=== PATIENT | female | born 1980 | race Caucasian/White ===

== ENCOUNTER 2016-07-08 13:41 | Outpatient (CLI) | payer OTHER ==
[2016-07-08 18:46] VITALS: BMI 33.5
[2016-07-08] MEDS ORDERED: PROMETHAZINE HCL 25 MG/ML VIAL ONE (19:01)
[2016-07-08] MEDS ORDERED: MORPHINE SULFATE 10 MG/ML SYRINGE ONE (19:02)
[2016-07-08] MEDS ORDERED: MORPHINE SULFATE 10 MG/ML SYRINGE IM ONE (19:05)
[2016-07-08] MEDS: PROMETHAZINE HCL 25 MG/ML VIAL IM ONE ×2 (19:16→19:17)
== END 2016-07-08 19:30 | disposition home or self-care (01) ==
LOC: FBCOUT 13:41 → FBC 13:47 → FBCOUT 19:30
PROVIDERS: ATTEND Advanced Practice Midwife
DX: O47.9 False labor, unspecified (principal); O09.529 Supervision of elderly multigravida, unspecified trimester; Z3A.00 Weeks of gestation of pregnancy not specified
CPT/HCPCS: 96372; 59025; 81002; J2270; J2550; G0463

== ENCOUNTER 2016-07-09 06:05 | Inpatient (IN) | payer OTHER ==
[2016-07-09] MEDS ORDERED: IV START KIT ONE (06:18)
[2016-07-09] MEDS ORDERED: LACTATED RINGERS 1,000 ML ONE (06:18)
[2016-07-09] MEDS ORDERED: PENICILLIN G POTASSIUM 5 MMU in NS 0.9% (MINI-BAG PLUS) 100 ML IV ONE (06:20)
[2016-07-09] MEDS ORDERED: LACTATED RINGERS 1,000 ML IV SCH (06:30)
[2016-07-09] MEDS ORDERED: PENICILLIN G POTASSIUM 5 MMU VIAL ONE (06:51)
[2016-07-09] MEDS ORDERED: NS 0.9% (MINI-BAG PLUS) 100 ML IV ONE (06:51)
[2016-07-09 07:46] VITALS: BMI 33.5
[2016-07-09] MEDS ORDERED: MINERAL OIL 25 ML BOT ONE (08:53)
[2016-07-09] MEDS ORDERED: LIDOCAINE 1% (PRES FREE) 30 ML VIAL ONE (08:53)
[2016-07-09] MEDS ORDERED: OXYTOCIN 10 UNITS/ML VIAL ONE (08:53)
[2016-07-09] MEDS ORDERED: LIDOCAINE Viscous 2% 15 ML UDCUP ONE (08:53)
[2016-07-09] MEDS ORDERED: PUMP TUBING ONE (08:54)
[2016-07-09] MEDS ORDERED: OXYTOCIN IN LR 0 ML IV ONE (08:54)
[2016-07-09 09:34] LABS: HEMATOCRIT 38.2 % (37.0-47.0); HEMOGLOBIN 12.5 gm/l (12.0-16.0); MEAN CELL VOLUME 94.3 fl (81.0-99.0); MEAN CORPUSCULAR HEMOGLOBIN 30.9 pg (27.0-31.0); MEAN CORPUSCULAR HGB CONC 32.7 g/dl (33.0-37.0); RED CELL DISTRIBUTION WIDTH 12.9 % (11.5-14.5)
[2016-07-09] MEDS ORDERED: PENICILLIN G 3 MIL UNIT PREMIX 50 ML IV ONE (10:26)
[2016-07-09] MEDS: PENICILLIN G 3 MIL UNIT PREMIX 3 MMU in Premix (D5W) 50 ml 1 EACH IV SCH (10:58)
[2016-07-09] MEDS ORDERED: FENTANYL 100 MCG/2 ML VIAL IV ONE ×2 (11:43→17:01)
--- NOTE | 2016-07-09 11:43 | PDOC36 ---
Provider Note Subject: Labor Progress Note Note: S; On hands and knees by bedside. Breathing through contractions. Some are stronger than others. Has been trying to rest, unsuccessfully due to the contractions. O: IA: 145 baseline, increases heard, no decreases heard Contractions: q 3-4 minutes, moderate to palpation SVE: 6/100/-3/LOT VS: BP 107/59, HR 90, RR 18, T 37.3 C A: Active labor Slow progress in 5 hours GBS pos; received adequate prophylaxis Remains candidate for IA P: Discussed risks/benefits of AROM augmentation v. expectant management for another 2 hours.
--- NOTE | 2016-07-09 11:43 | PCMAN ---
OB Admission Note - History : 2 Term: 1 : 0 Abortions (S&E): 0 Livin EDC:: 07/01/16 Gestational Age (weeks): 41 Days (#/7): 1 Admit Cervical Dilation:: 5 Admit Cervical Effacement (%):: 85 Admit Station:: -3 Admit Presentaton:: vertex Membrane Status: Intact Labor Onset (Date): 07/09/16 Labor Onset (Time): 06:00 Contractions: Yes Contraction Frequency:: q 3-4 mins Heart Rate:: 150 (moderate variability/accels present/decels absent) Status:: FHR Cat 1 EFW:: 7-7.5# Summary of Course:: Onset of care at 8w5d x 16 visits. complicated by mild hyperemesis gravidum and rheumatoid arthritis. Took humira throughout until . [place] U/S at 34w showed stable uterine fibroid at 2.5cm x 1.5 cm x 2.6 cm. YNES based on 9w5d U/S. - Labs Blood Type: A (+) positive Hct/Hgb:: 11.7 Rubella Status: Immune GBS Status: Positive Abnormal Labs: None - Review of Systems Neg ROS - Physical Exam General: Afebrile, No Acute Distress Psych/Mental Status: Mood/Affect Appropriate, Judgment/Insight Intact Neurological: Grossly Intact, Alert, Oriented x 4 Lungs: Clear to Auscultation Bilaterally Cardiovascular: Regular Rate and Rhythm Genitourinary: Normal Female Genitalia, No Edema Extremities: Full ROM, No Edema - Problems (1) Active labor at term Status: Acute Code: [id number] Assessment/Plan: 36 year old at 41w1d Active labor GBS pos FHR Cat 1 Rheumatoid arthritis Uterine fibroid Declines AMTSL Plan: Admit to [facility]. Start GBS prophylaxis. Expectant management of labor. Reassess in 2 hours or PRN.
[2016-07-09] MEDS ORDERED: FENTANYL/ROPIVACAINE EPIDURAL 0 ML EP ONE (13:36)
[2016-07-09] MEDS ORDERED: EPIDURAL PUMP SET ONE (13:36)
[2016-07-09] MEDS ORDERED: LIDOCAINE 1% 2 ML VIAL PF ONE (14:18)
[2016-07-09] MEDS ORDERED: LANOLIN 50 APPLIC/7G TUBE TP PRN (14:28)
[2016-07-09] MEDS ORDERED: CALCIUM CARBONATE 500 MG TAB.CHEW PO PRN (14:28)
[2016-07-09] MEDS ORDERED: BENZOCAINE/MENTHOL 60 APPLIC/BOT TP PRN (14:28)
[2016-07-09] MEDS ORDERED: DOCUSATE SODIUM 100 MG CAPSULE PO PRN (14:28)
[2016-07-09] MEDS ORDERED: HYDROCODONE/ACETAMINOPHEN 5/325MG TABLET PO PRN (14:28)
[2016-07-09] MEDS: IBUPROFEN 800 MG TABLET PO PRN ×2 (14:54→21:06)
--- NOTE | 2016-07-09 21:14 | PCMDEL ---
Delivery Note - Labor 1st stage (hr/min):: 7 hours 2nd stage (hr/min):: 18 mins 3rd stage (hr/min):: 10 mins Total (hr/min):: 7 hours 28 mins Pushed (hr/min):: 18 mins - Delivery Delivery (Date): 07/09/16 Delivery (Time): 13:58 Infant Gender: Female Weight: 3.742 kg Length: 1 ft 9 in Presentation: Cephalic Position: OA Umbilical Cord: 3 Vessel Delayed Cord Clamping:: > 3 min 1 Minute Total: 9 5 Minute Total: 9 Placenta:: Intact/[place] EBL:: 300 Perineum:: 1st degree split Suture:: 3.[address] Anesthesia/Meds:: fentanyl IV Length ROM:: 2 hours Comments:: Admitted to [facility] in active labor. Labored in tub and on hands and knees. FHR Cat 1 during first stage. Slow progress from 5 to 6 cm over 5 hours. Agreed to AROM augmentation as contractions only palpated moderate. perceived to be LOT and anterior asynclitic at time of AROM. AROM of clear fluid. Increase in intensity of contractions and patient received 100 mcg and 50 mcg of IV fentanyl. Requested epidural after two hours post AROM. SVE at that time 7/100/- 2. Anesthesia alerted but then patient started pushing spontaneously shortly afterwards and was found to be complete. Pushed in Semi-Fowlers per patient choice for of vigorous female . Direct OA without restitution. Mother declined holding infant directly after due to reaction to sight of blood. Infant dried and wrapped in blankets at level of perineum until cord stopped pulsing. Given to father after cord cut/ clamped as mother did not want immediate skin to skin. Spontaneous delivery of intact placenta in [place] presentation with gentle cord traction and maternal pushing efforts. Fundus firm with good hemostasis after delivery. Patient had declined AMTSL unless indicated. Perineum noted and shallow first degree laceration noted; repaired with one stitch. Mother and stable in immediate period.
[2016-07-10] MEDS: IBUPROFEN 800 MG TABLET PO PRN ×4 (03:03→23:48)
[2016-07-10 06:33] LABS: HEMATOCRIT 28.8 % (37.0-47.0); HEMOGLOBIN 9.5 gm/l (12.0-16.0)
[2016-07-10] MEDS: PENICILLIN G 3 MIL UNIT PREMIX 3 MMU in Premix (D5W) 50 ml 1 EACH IV SCH (07:06)
--- NOTE | 2016-07-10 13:46 | PDOC39B ---
Hospital Course: ADMIT DATE: 07/09/16 DISCHARGE DATE: 07/10/16 ADMISSION DIAGNOSES: Active labor at term PROCEDURES: HISTORY OF PRESENT ILLNESS: 36 year old G2 T1 L1 at 41 weeks 1 days presenting with active labor at term. Achieved . HOSPITAL COURSE: By day of discharge the patient is ambulating, eating, voiding , and passing flatus without difficulty. Pain is controlled and lochia is appropriate. She is with much difficulty-she has flat nipples and baby has poor latch. Nipples are bruised and sore. Per RN, baby does non-nutritive sucking. Also, patient and RN have been unable to hand-express any colostrum. Patient plans condoms and natural family planning for contraception. She reports being depressed after her 1st baby, but attributes this more due to the transition of moving to [facility] at 6wks and missing her family. She has family who live nearby who are supportive. - Physical Exam Vital Signs: Temp Pulse Resp BP Pulse Ox 98.0 F 59 16 109/56 07/10/16 08:16 07/10/16 08:16 07/10/16 08:16 07/10/16 08:16 General: Afebrile Psych/Mental Status: Mood/Affect Appropriate, Judgment/Insight Intact, Bonding Well Lungs: Clear to Auscultation Bilaterally Cardiovascular: Regular Rate and Rhythm Breast: Soft, Skin intact, Tenderness, Other (Bruising bilaterally) Fundus: Firm, Midline, Below Umbilicus Genitourinary: Normal Female Genitalia (Minimal swelling) Lochia: Light Extremities: Full ROM Skin: Normal Color - Discharge Diagnosis (1) Anemia Qualifiers: Anemia type: iron deficiency Iron deficiency anemia type: unspecified iron deficiency Qualifier Code: (D50.9) Iron deficiency anemia, unspecified Status: Acute Assessment/Plan: A: Mild iron deficiency anemia Asymptomatic Vital signs stable P: Reviewed this morning's H/H with patient and need for iron supplementation at home. Rx for ferrous sulfate given. Encouraged to increase water intake and to take plenty of time to rest. Danger signs reviewed Will recheck Hgb at 6wks (2) care following vaginal delivery Status: Acute Assessment/Plan: A: Day 1 Lochia stable difficulties related to flat nipples, poor latch, pain and minimal colostrum production Rheumatoid arthritis P: : encouraged pt to consider staying an additional night to get extra support, which she declines. Rx for breastpump given. Encouraged pt to seek follow-up at [facility]. Discussed monitoring baby's wet diapers as an indication of hydration status and supplementing as needed until her milk comes in. Encouraged hand expression and [id number] for breast stimulation. Education: handout given and reviewed. Warnings signs discussed. Rx: iron, colace, ibuprofen Contraception: condoms, natural family planning. Does not desire hormonal control methods. Rheumatoid arthritis: follow-up with cabinetmaker helper as planned to discuss timing of when to resume Nancy. Symptoms currently stable. Follow-up: 07/20/16 in [place], or PRN - Discharge Plan Condition: Stable Disposition: Home Additional Instructions: Congratulations on the of your Mercedes! You have a 2-week visit scheduled for 07/20/16 at 2:20pm in [place]. If you have any questions, concerns , or need to reschedule, please don't hesitate to contact the midwives at [phone]. Prescriptions: Docusate Sodium [COLACE 100 MG CAPSULE (SHF)] 100 mg PO DAILY PRN #20 cap PRN Reason: Constipation Ibuprofen [Motrin] 1 tab PO Q6H PRN #30 tablet PRN Reason: Pain FERROUS SULFATE (65 Fe) [IRON FERROUS SULFATE 325 MG TABLET (SHF)] 325 mg PO DAILY #60 tab
[2016-07-11] MEDS: IBUPROFEN 800 MG TABLET PO PRN (05:37)
[2016-07-11 08:38] VITALS: BP 115/72
--- NOTE | 2016-07-11 10:46 | PDOC36 ---
Provider Note Subject: Discharge postponed Note: Vandana decided on the recommendation of the baby's provider, to stay overnight for help. Is feeling better about her skills, has accepted nipple shield to assist with flat nipples and has a plan for pumping and supplementing until milk is in. Reviewed resources after discharge and encourage BABIES f/u. Plans to use [facility] for care. Discharge instructions and danger signs reviewed. Has 2-week f/u appt scheduled in [place] office.
== END 2016-07-11 12:25 | disposition home or self-care (01) | DRG 775 ==
LOC: FBC 06:05
PROVIDERS: ADMIT Advanced Practice Midwife; ATTEND Advanced Practice Midwife
PROC: 10E0XZZ Delivery of Products of Conception, External Approach (ICD-10-PCS; principal; 2016-07-09)
PROC: 10907ZC Drainage of Amniotic Fluid, Therapeutic from Products of Conception, Via Natural or Artificial Opening (ICD-10-PCS; 2016-07-09)
PROC: 0HQ9XZZ Repair Perineum Skin, External Approach (ICD-10-PCS; 2016-07-09)
DX: O99.824 Streptococcus B carrier state complicating childbirth (principal); O48.0 Post-term pregnancy; O34.13 Maternal care for benign tumor of corpus uteri, third trimester; D25.9 Leiomyoma of uterus, unspecified; O75.89 Other specified complications of labor and delivery; M06.9 Rheumatoid arthritis, unspecified; O64.8XX0 Obstructed labor due to other malposition and malpresentation, not applicable or unspecified; O70.0 First degree perineal laceration during delivery; O90.81 Anemia of the puerperium; D50.9 Iron deficiency anemia, unspecified; N64.89 Other specified disorders of breast; Z3A.41 41 weeks gestation of pregnancy; Z37.0 Single live birth

== ENCOUNTER 2016-07-15 16:46 | Emergency (ER) | payer OTHER ==
[2016-07-15] MEDS ORDERED: SODIUM CHLORIDE 0.9% 1,000 ML ONE (17:53)
[2016-07-15 18:10] LABS: ABSOLUTE NEUTROPHIL COUNT 22.6 K/mm3 (1.8-7.7); BASO # 0.1 K/mm3 (0.0-0.2); BASO % 0.2 % (0.2-1.0); EOS % 0.1 % (0.9-2.9); HEMATOCRIT 34.6 % (37.0-47.0); HEMOGLOBIN 11.5 gm/l (12.0-16.0); IMM NEUT # 0.2 K/mm3 (0-0.2); IMM NEUT% 0.8 % (0-1); LYMPH # 1.8 (1.0-4.8); LYMPH % 6.7 % (15-45); MEAN CORPUSCULAR HEMOGLOBIN 31.3 pg (27.0-31.0); MEAN CORPUSCULAR HGB CONC 33.2 g/dl (33.0-37.0); MEAN PLATELET VOLUME 12.4 fl (7.4-10.4); MONO # 1.7 (0.0-0.8); MONO % 6.4 % (4-12); NEUT % 85.8 % (43-75); PLATELET COUNT 237 K/mm3 (130-400); RED CELL DISTRIBUTION WIDTH 13.2 % (11.5-14.5)
[2016-07-15 18:32] LABS: ALB/GLOB RATIO 1.1 (>1.0); ALBUMIN 3.6 gm/dL (3.5-5.7); CALCIUM 9.3 mg/dL (8.6-10.3)
--- NOTE | 2016-07-15 18:46 | RAD ---
Exam: Two-view chest COMPARISON: None INDICATION: Elevated WBC and fever. FINDINGS: PA and lateral views of the chest were obtained. Cardiac silhouette is within normal limits. Lungs are well-inflated. There is mild coarsening of bronchovascular markings. There is no focal airspace disease or pleural effusion. Bones of the chest wall within normal limits. IMPRESSION: No radiographic evidence of pneumonia.
[2016-07-15 19:10] LABS: BAND 7 % (0-10); BASOPHIL 0 % (0-1); EOSINOPHIL 1 % (1-3); LYMPHOCYTE 6 % (15-45); MONOCYTE 3 % (4-12); NEUTROPHILS 83 % (43-75); PLATELET ESTIMATE NORMAL (NORMAL); TOTAL CELLS COUNTED 100
[2016-07-15 19:30] LABS: SPECIFIC GRAVITY 1.015 (1.001-1.030); URINE BILIRUBIN NEGATIVE (NEGATIVE); URINE BLOOD 2+ (NEGATIVE); URINE GLUCOSE (UA) NEGATIVE (NEGATIVE); URINE LEUKOCYTE ESTERASE NEGATIVE (NEGATIVE); URINE NITRITE NEGATIVE (NEGATIVE); URINE PROTEIN NEGATIVE (NEGATIVE); URINE UROBILINOGEN NORMAL (0-1 mg/dl)
[2016-07-15 19:33] LABS: URINE APPEARANCE CLEAR; URINE COLOR LIGHT YELLOW
[2016-07-15 19:41] LABS: URINE BACTERIA FEW; URINE EPITHELIAL CELLS 0 /hpf; URINE RBC 0 /hpf; URINE WBC NEG /hpf
[2016-07-15] MEDS ORDERED: PIPERACILLIN-TAZO PREMIX BAG 50 ML IV ONE (20:14)
[2016-07-15] MEDS ORDERED: IBUPROFEN 600 MG TABLET ONE (20:23)
== END 2016-07-15 20:56 | disposition home or self-care (01) ==
LOC: ED 16:46
DX: O86.4 Pyrexia of unknown origin following delivery (principal); O99.89 Other specified diseases and conditions complicating pregnancy, childbirth and the puerperium; D72.829 Elevated white blood cell count, unspecified; Z37.9 Outcome of delivery, unspecified
CPT/HCPCS: 83605; 85025; 87040 ×2; 80053; 81001; 71020; 87804; 99284 ×2; 96374; 96361; A9270; J2543; J7030